=== PATIENT | male | born 1985 | race Hispanic/Latino ===

== ENCOUNTER → 2019-07-12 | Outpatient (CLI) | payer SELFPAY ==
--- NOTE | 2019-07-12 15:52 | Diagnostic Imaging Report ---
X-ray lumbar spine 3 views Comparison: None History: Starting new job. Requiring lifting. Previous spine x-rays Findings: 3 views of the lumbar spine. 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 There is presence of slight straightening of the L-spine lordosis. There is no significant intervertebral disc disease of the lumbar spine. There is presence of osteophytes at the lower thoracic levels. There is a suspected pars interarticular defect at the L6 vertebra on the left side. Impression: Transitional lumbar spine. Pars defect at the lowest lumbar transitional vertebra on the left side is not ruled out. Oblique views may be performed for further evaluation. Signed by: Jovi Tavarez MD on 07/12/2019 3:48 PM
== END ==
LOC: RAD 13:48
PROVIDERS: ATTEND Family Medicine
DX: Z02.1 Encounter for pre-employment examination (principal)
CPT/HCPCS: 72100